=== PATIENT | female | born 1995 | race African-American/Black ===

== ENCOUNTER 2023-01-07 19:13 | Emergency (ER) | payer OTHER ==
[~2023-01-07] VITALS: Ht 160 cm; Wt 78.9 kg
[~2023-01-07 19:13] MED LIST: PROVENTIL3 ML/2.5 M IH
[2023-01-07] MEDS ORDERED: DUI500 PO (21:43)
== END 2023-01-07 21:46 | disposition home or self-care (01) ==
LOC: ER 19:13
DX: L02.01 Cutaneous abscess of face (principal); M94.0 Chondrocostal junction syndrome [Tietze]; Z91.012 Allergy to eggs

== ENCOUNTER 2024-01-01 09:53 | Emergency (ER) | payer OTHER ==
[~2024-01-01] VITALS: Ht 160 cm; Wt 86.2 kg
[~2024-01-01 09:53] MED LIST changes: +DUI500 PO
[2024-01-01] MEDS ORDERED: PROAIR RESPICL90 MCG (10:34)
[2024-01-01] MEDS ORDERED: SINGULAIR10 MG PO (10:34)
[2024-01-01] MEDS ORDERED: CEFTRIAXONE SODIUM 2,000 MG VIAL IV ONE (11:15)
== END 2024-01-01 11:28 | disposition home or self-care (01) ==
LOC: ER 09:53
DX: S00.31XA Abrasion of nose, initial encounter (principal); Z91.012 Allergy to eggs; Z91.013 Allergy to seafood; J45.909 Unspecified asthma, uncomplicated

== ENCOUNTER 2024-07-28 18:41 | Emergency (ER) | payer OTHER ==
[~2024-07-28] VITALS: Ht 160 cm; Wt 83.9 kg
[~2024-07-28 18:41] MED LIST changes: +PROAIR RESPICL90 MCG; +SINGULAIR10 MG PO
[2024-07-28] MEDS ORDERED: DEXAMETHASONE SODIUM PHOSPHATE 4 MG/ML VIAL IM STA (22:14)
[2024-07-28] MEDS ORDERED: KETOROLAC TROMETHAMINE 60 MG VIAL IM STA (22:15)
[2024-07-28] MEDS ORDERED: ORPHENADRINE CITRATE 30 MG/ML AMPUL IM STA (22:15)
== END 2024-07-28 22:53 | disposition home or self-care (01) ==
LOC: ER 18:42
DX: K83.9 Disease of biliary tract, unspecified (principal); R07.89 Other chest pain; Z91.012 Allergy to eggs; Z91.013 Allergy to seafood